=== PATIENT | male | born 1960 | race Caucasian/White ===

== ENCOUNTER 2022-04-01 10:12 | Emergency (ER) | payer MEDICAID ==
[~2022-04-01] VITALS: Ht 175.3 cm; Wt 72.6 kg
[2022-04-01] MEDS ORDERED: ACETAMINOPHEN 325 MG TABLET PO ONE (10:45)
[2022-04-01] MEDS ORDERED: ACETAMINOPHEN 325 MG TABLET ONE (11:04)
[2022-04-01] MEDS ORDERED: NEOMY/BACITRA/POLYMYXIN B OINT UD PACKET TP ONE ×2 (11:04→11:15)
[2022-04-01 11:57] VITALS: BP 123/86
--- NOTE | 2022-04-01 11:58 | NUR ---
Patient discharged to home in stable condition. Written and verbal after care instructions given. Patient verbalizes understanding of instructions. Stressed follow up or return to ER for worsening s/s.
--- NOTE | 2022-04-01 12:58 | NUR ---
Social work consult was requested for a homeless patient in the emergency room for resources. Patient is 61-year-old male. Patient is alert and oriented X3. Patient could not state the date. Patient presents with anxious mood and congruent affect. Patient states his primary contact is his , Jerald Daniels ([phone]) and she is currently living in [place]. Patients stated that him and his are , but they have a good relationship. Patient stated he has been homeless for 2 weeks and was previously living in a correction in [place]. Patient could not remember the name of the correction. [facility] provided the patient resources and gave him the information for [address] [address] ([phone]) and [facility] [address] [place] [id number] ([phone]). [facility] gave resources for [place] [address]. Resources were placed in the chart. Homeless waiver was signed and given to the patient and a copy was placed in the chart. Patient states that he is currently unemployed and receiving social security and food stamps. Patient states he is currently not driving. Patient denied a history of substance abuse. There is no toxicology report Patient denies a history of psychiatric diagnosis. Patient denies current suicidal or homicidal ideation. SW provided emotional support and validation when speaking with the patient. Patient states he will discharge to [facility] [address] [place] [address] ([phone]. [facility] provided the patient a TAP card for discharge.
== END 2022-04-01 11:58 | disposition home or self-care (01) ==
LOC: ER 10:12
DX: G89.21 Chronic pain due to trauma (principal); M79.675 Pain in left toe(s); L97.521 Non-pressure chronic ulcer of other part of left foot limited to breakdown of skin; B35.1 Tinea unguium
CPT/HCPCS: A4663